=== PATIENT | female | born 1985 | race Caucasian/White ===

== ENCOUNTER 2018-10-07 13:11 | Emergency (ER) | payer OTHER, SELFPAY ==
[~2018-10-07] VITALS: Ht 160 cm; Wt 52.0 kg
[2018-10-07] MEDS ORDERED: OLANZAPINE 10 MG/VIAL IM ONE (13:30)
[2018-10-07] MEDS ORDERED: SODIUM CHLORIDE 0.9% 1,000 ML IV ONE (15:15)
[2018-10-07 16:02] LABS: CHLORIDE 108 mEq/L (98-107)
[2018-10-07 16:07] LABS: ETHANOL BLOOD < 10 mg/dL
[2018-10-07 16:50] VITALS: BP 140/78
[2018-10-07] MEDS: SODIUM CHLORIDE 0.9% 1,000 ML IV NR ×2 (16:53→16:55)
== END 2018-10-07 16:50 | disposition home or self-care (01) ==
LOC: ER 13:18
DX: T67.5XXA Heat exhaustion, unspecified, initial encounter (principal); F20.9 Schizophrenia, unspecified; F14.10 Cocaine abuse, uncomplicated; F12.10 Cannabis abuse, uncomplicated; F15.10 Other stimulant abuse, uncomplicated; F11.10 Opioid abuse, uncomplicated; X58.XXXA Exposure to other specified factors, initial encounter; Y93.89 Activity, other specified; Y92.89 Other specified places as the place of occurrence of the external cause; Y99.8 Other external cause status
CPT/HCPCS: 36415; 80048; 80320; 96372; 99283; J3490; G0480